=== PATIENT | male | born 1955 | race Caucasian/White ===

== ENCOUNTER 2017-02-15 15:42 | Inpatient (IN) | payer MEDICARE, MEDICAID ==
[2017-02-15] MEDS ORDERED: Sodium Chloride 0.9% 10 ML Syringe FLUSH PRN (17:17)
[2017-02-15] MEDS ORDERED: Sodium Chloride 0.9% 1,000 ML IV SCH (17:30)
[2017-02-15] MEDS: NS + KCl 20mEq/L 1,000 ML IV SCH (19:41)
[2017-02-15] MEDS ORDERED: Albuterol 8 GM Inhaler INH PRN (23:38)
[2017-02-15] MEDS ORDERED: ETANERCEPT 50 MG IM SCH (23:45)
[2017-02-15] MEDS: Acetaminophen/HYDROcodone 325-5 MG Tab PO PRN (23:54)
[2017-02-16] MEDS: NS + KCl 20mEq/L 1,000 ML IV SCH ×3 (03:27→19:34)
[2017-02-16] MEDS: Acetaminophen/HYDROcodone 325-5 MG Tab PO PRN ×2 (05:00→22:08)
[2017-02-16] MEDS: Fish Oil/Omega-3 Fatty Acids 1 Gm Cap PO SCH (07:41)
[2017-02-16] MEDS: Metoprolol Tartrate 50 MG Tab PO SCH ×2 (07:42→19:30)
[2017-02-16] MEDS: Furosemide 40 MG Tab PO SCH ×2 (07:45→11:45)
[2017-02-16] MEDS ORDERED: glipiZIDE 2.5 MG Tab.ER PO SCH (08:00)
[2017-02-16] MEDS ORDERED: POTASSIUM CITRATE 5 MEQ PO SCH (08:00)
[2017-02-16] MEDS ORDERED: metFORMIN 500 MG Tab PO SCH (08:00)
[2017-02-16] MEDS ORDERED: Lisinopril 20 MG Tab PO SCH (08:00)
[2017-02-16] MEDS ORDERED: metFORMIN 500 MG Tab.ER PO SCH (08:00)
[2017-02-16] MEDS ORDERED: Hydrochlorothiazide 25 MG Tab PO SCH (08:00)
--- NOTE | 2017-02-16 13:09 | PCM.PN ---
- General Info Date of Service: 02/16/17 Subjective Update: Pt claims he feels fine today. He has had 2-3 small loose stools since admission. No fever or chills.No cramping. No blood or mucus in the stool. He has been eating . Has been on IV NS with potassium. Has good urinary output. Functional Status: Reports: Pain Controlled, Ambulating, Urinating. Denies: Tolerating Diet - Review of Systems General: Reports: Weakness. Denies: Fever, Fatigue, Malaise HEENT: Denies: Headaches, Sinus Congestion, Sore Throat Pulmonary: Denies: Shortness of Breath, Pleuritic Chest Pain, Cough, Sputum, Hemoptysis Cardiovascular: Denies: Chest Pain, Lightheadedness Gastrointestinal: Reports: Diarrhea. Denies: Abdominal Pain, Nausea, Vomiting Genitourinary: Denies: Frequency, Flank Pain Musculoskeletal: Denies: Joint Pain, Joint Swelling Skin: Denies: Jaundice, Bruising, Pruritis - Patient Data Vitals - Most Recent: Last Vital Signs Temp 98.4 F 02/16/17 08:00 Pulse 78 02/16/17 08:00 Resp 18 02/16/17 08:00 BP 120/61 02/16/17 08:00 Pulse Ox 97 02/16/17 08:00 Weight - Most Recent: 156.489 kg I&O - Last 24 Hours: Intake & Output 02/15/17 02/16/17 02/16/17 22:59 06:59 14:59 Intake Total 2395 Balance 2395 Lab Results Last 24 Hours: Laboratory Results - last 24 hr 02/15/17 02/15/17 02/16/17 Range/Units 16:01 16:01 07:20 WBC 7.9 D (4.0-11.0) K/uL RBC 4.25 L (4.50-6.50) M/uL Hgb 13.6 (13.0-18.0) g/dL Hct 38.5 L (40.0-54.0) % MCV 91 (76-96) fL MCH 32.0 (27.0-32.0) pg MCHC 35.3 H (31.0-35.0) g/dL RDW 15.5 (11.0-16.0) % Plt Count 208 (150-400) K/uL MPV 8.3 (6.0-10.0) fL Neut % (Auto) 73.4 H (45.0-70.0) % Lymph % (Auto) 8.5 L (20.0-40.0) % [place] % (Auto) 17.3 H (3.0-10.0) % Eos % (Auto) 0.5 L (1.0-5.0) % Baso % (Auto) 0.3 (0.0-0.5) % Neut # (Auto) 5.78 (2.00-7.50) K/uL Lymph # (Auto) 0.67 L (1.50-4.00) K/uL [place] # (Auto) 1.36 H (0.20-0.80) K/uL Eos # (Auto) 0.04 (0.04-0.40) K/uL Baso # (Auto) 0.02 (0.02-0.10) K/uL Sodium 131 L 125 L (136-145) mmol/L Potassium 3.4 L D 3.0 L (3.5-5.1) mmol/L Chloride 95 L 99 (98-107) mmol/L Carbon Dioxide 17.0 L D 18.2 L (21.0-32.0) mmol/L Anion Gap 22.4 H 10.8 (5.0-15.0) mmol/L BUN 63 H* D 66 H* (8-26) mg/dL Creatinine 3.69 H* D 3.08 H* (0.70-1.30) mg/dL Est Cr Clr Drug Dosing TNP 25.82 Estimated GFR (MDRD) 17 L 21 L (>60) MLS/MIN BUN/Creatinine Ratio 17.1 21.4 (6-25) Glucose 95 97 (74-100) mg/dL POC Glucose (74-110) mg/dL Calcium 8.7 8.3 L (8.5-10.1) mg/dL 02/16/17 Range/Units 11:08 WBC (4.0-11.0) K/uL RBC (4.50-6.50) M/uL Hgb (13.0-18.0) g/dL Hct (40.0-54.0) % MCV (76-96) fL MCH (27.0-32.0) pg MCHC (31.0-35.0) g/dL RDW (11.0-16.0) % Plt Count (150-400) K/uL MPV (6.0-10.0) fL Neut % (Auto) (45.0-70.0) % Lymph % (Auto) (20.0-40.0) % [place] % (Auto) (3.0-10.0) % Eos % (Auto) (1.0-5.0) % Baso % (Auto) (0.0-0.5) % Neut # (Auto) (2.00-7.50) K/uL Lymph # (Auto) (1.50-4.00) K/uL [place] # (Auto) (0.20-0.80) K/uL Eos # (Auto) (0.04-0.40) K/uL Baso # (Auto) (0.02-0.10) K/uL Sodium (136-145) mmol/L Potassium (3.5-5.1) mmol/L Chloride (98-107) mmol/L Carbon Dioxide (21.0-32.0) mmol/L Anion Gap (5.0-15.0) mmol/L BUN (8-26) mg/dL Creatinine (0.70-1.30) mg/dL Est Cr Clr Drug Dosing Estimated GFR (MDRD) (>60) MLS/MIN BUN/Creatinine Ratio (6-25) Glucose (74-100) mg/dL POC Glucose 90 (74-110) mg/dL Calcium (8.5-10.1) mg/dL Med Orders - Current: Current Medications Hydrocodone Bitart/Acetaminophen ([place] 325-5 Mg) 1 tab PO BID PRN PRN Reason: Pain Last Admin: 02/16/17 05:00 Dose: 1 tab Albuterol (Ventolin Hfa) 0 gm INH Q4H PRN PRN Reason: Shortness of Breath Fish Oil (Fish Oil) 1 gm PO DAILY [facility] Last Admin: 02/16/17 07:41 Dose: 1 gm Furosemide (Lasix) 40 mg PO DAILY [facility] Last Admin: 02/16/17 11:45 Dose: Not Given Glipizide (Glucotrol Xl) 2.5 mg PO DAILY [facility] Last Admin: 02/16/17 07:41 Dose: 2.5 mg Hydrochlorothiazide (Hydrochlorothiazide) 25 mg PO DAILY [facility] Last Admin: 02/16/17 07:41 Dose: 25 mg Potassium Chloride/Sodium Chloride (Normal Saline With 20 Meq Kcl) 1,000 mls @ 125 mls/hr IV ASDIRECTED [facility] Last Admin: 02/16/17 11:46 Dose: 125 mls/hr Lisinopril (Prinivil) 20 mg PO DAILY [facility] Last Admin: 02/16/17 07:41 Dose: 20 mg Metoprolol Tartrate (Lopressor) 50 mg PO BID [facility] Last Admin: 02/16/17 07:42 Dose: 50 mg Non-Formulary Medication (Etanercept [Enbrel]) 50 mg IM WEEKLY [facility] Non-Formulary Medication (Potassium Citrate [Potassium Citrate Er]) 5 meq PO TID [facility] Sodium Chloride (Saline Flush) 10 ml FLUSH ASDIRECTED PRN PRN Reason: Keep Vein Open Discontinued Medications Sodium Chloride (Normal Saline) 1,000 mls @ 1,000 mls/hr IV BOLUS [facility] Stop: 02/15/17 18:29 Last Admin: 02/15/17 18:20 Dose: 1,000 mls/hr Metformin HCl (Glucophage Xr) 1,000 mg PO DAILY [facility] Metformin HCl (Glucophage) 500 mg PO BID [facility] - Exam General: Alert, Oriented HEENT: Pupils Equal, Pupils Reactive, EOMI, Mucous Membr. Moist/[place] Neck: Supple Lungs: Clear to Auscultation, Normal Respiratory Effort Cardiovascular: Regular Rate, Regular Rhythm GI/Abdominal Exam: Soft, Non-Tender, No Organomegaly, No Distention, No Abnormal Bruit, No Mass, Pelvis Stable, Abnormal Bowel Sounds (sligthly hyperactive) - Problem List & Annotations (1) Gastroenteritis SNOMED Code(s): 14674846 Code(s): K52.9 - NONINFECTIVE GASTROENTERITIS AND COLITIS, UNSPECIFIED Status: Acute Current Visit: Yes (2) Renal failure, acute SNOMED Code(s): 73519845 Code(s): N17.9 - ACUTE KIDNEY FAILURE, UNSPECIFIED Status: Acute Current Visit: Yes - Problem List Review Problem List Initiated/Reviewed/Updated: Yes - My Orders Last 24 Hours: My Active Orders 02/15/17 17:17 Patient Status [ADT] Routine Bedrest Bathroom Privileges [RC] ASDIRECTED Height and Weight [RC] UPON Oxygen Therapy [RC] PRN VTE/DVT Education [RC] Per Unit Routine Vital Signs [RC] 00,04,08,12,16,20 Sodium Chloride 0.9% [Saline Flush] 10 ml FLUSH ASDIRECTED PRN Peripheral IV Insertion Adult [OM.PC] Routine Resuscitation Status Routine 02/15/17 17:19 Intake and Output [RC] 06,18 02/15/17 17:30 NS + KCl 20mEq/L [Normal Saline with 20 mEq KCl] 1,000 ml IV ASDIRECTED 02/15/17 20:17 CULTURE MRSA SURVEY [RM] Routine 02/15/17 23:38 Acetaminophen/HYDROcodone [[place] 325-5 MG] 1 tab PO BID PRN Albuterol [Ventolin HFA] 0 gm INH Q4H PRN 02/15/17 23:45 Etanercept [Enbrel] 50 mg IM WEEKLY 02/15/17 Dinner Mechanical Soft Diet [DIET] 02/16/17 GI BACTERIAL PCR PANEL Routine 02/16/17 08:00 Fish Oil/[place]-3 Fatty Acids [Fish Oil] 1 gm PO DAILY Furosemide [Lasix] 40 mg PO DAILY Hydrochlorothiazide 25 mg PO DAILY Lisinopril [Prinivil] 20 mg PO DAILY Metoprolol Tartrate [Lopressor] 50 mg PO BID Potassium Citrate [Potassium Citrate ER] 5 meq PO TID glipiZIDE [Glucotrol XL] 2.5 mg PO DAILY 02/16/17 10:13 Blood Glucose Check, Bedside [RC] QIDACANDBED - Assessment Assessment:: Gastroenteritis with dehydration with prerenal failure - Plan Plan:: Pt claims that he has had 3 smaller volume watery stools since admission. No cramping. No blood or mucus in the stool. His labs today, show sodium further dropped to 125, but his creat has improved to 3.01 from 3.8. Also his anion gap has cleared. I am stopping, his LAsix, metformin, HCTZ and glyburide until his renal functions improve. Will have him on frequent blood sugar monitoring for his diabetes. Will repeat his BMP in am.
[2017-02-17] MEDS: NS + KCl 20mEq/L 1,000 ML IV SCH (03:06)
[2017-02-17] MEDS: Fish Oil/Omega-3 Fatty Acids 1 Gm Cap PO SCH (08:49)
[2017-02-17 08:50] VITALS: BP 123/57
[2017-02-17] MEDS: Metoprolol Tartrate 50 MG Tab PO SCH (08:50)
--- NOTE | 2017-02-17 13:22 | PCM.DCSUM1 ---
Discharge Summary - Hospital Course Free Text/Narrative:: Pt was admitted with Acute viral gastroenteritis with Acute dehydration with Renal failure with Creat of 3.8. Pt was admitted for IV hydration and monitoring his sodium as he was hyponatremic at admission. Pt was started on IV normal saline with 20 meq of potassium at 125/hr. His vitals were stable. His CBC was normal. Stool culture ordered. On Day 1, pt had 3 watery loose stools, his sodium was further down to 125 and his creat has mildly improved to 3.06. Pt was feeling better. No abdominal pain or cramping. No fever. HE was encourage oral hydration and IV fluids were continued. Also I have stopped his lisinopril, LAsix, HCTZ, metformin and glyburide at this point as they are all nephrotoxic. Plan ws to continue IV hydration as he does appear to be in prerenal renal failure. Day2: pt claims his stools have got softer and has formed stool and only one time. He has not complaints. feeling better and strong. Tolerating diet well. His sodium today is 137 and his creat is down to 1.6. Pt tolerating diet and oral fluids well. His stools are forming now. Clinical exam is normal. At this point, pt prefer to be discharge. I do feel patient is okay to be discharge as his labs are reassuring and he has clinical improved well. I have advised patient to continue to stay of his meds that have been stopped for now. Return to clinic next tuesday or tuesday and have repeat lab BMP done before restarting the meds.Pt understands and agree with the plan. Brief History: Loose stools with dehydration. Adilia see H&P - Discharge Data Discharge Date: 02/17/17 Discharge Disposition: Home, Self-Care 01 Condition: Good - Discharge Diagnosis/Problem(s) (1) Gastroenteritis SNOMED Code(s): 58972084 ICD Code: K52.9 - NONINFECTIVE GASTROENTERITIS AND COLITIS, UNSPECIFIED Status: Acute Current Visit: Yes (2) Renal failure, acute SNOMED Code(s): 82235979 ICD Code: N17.9 - ACUTE KIDNEY FAILURE, UNSPECIFIED Status: Acute Current Visit: Yes - Patient Instructions Diet: Mechanical Soft Fluid Restriction: 2000 mL Activity: As Tolerated Driving: May Drive Today Showering/Bathing: May Shower - Discharge Plan Home Medications: Home Meds Etanercept [Enbrel] 50 mg IM WEEKLY 06/17/13 [History] Hydrocodone/Acetaminophen [Hydrocodone-Acetaminophen 5-325] 1 tab PO BID PRN [History] Metoprolol Tartrate 50 mg PO BID 05/12/15 [History] Albuterol Sulfate [Proair Hfa] 8.5 gm IH Q4HR PRN 02/15/17 [History] Fish Oil/[place]-3 Fatty Acids [Fish Oil 1,000 MG] 1 each PO DAILY 02/15/17 [ History] Potassium Citrate [Potassium Citrate ER] 5 meq PO TID 02/15/17 [History] metFORMIN HCl [Glucophage] 500 mg PO BID 02/15/17 [History] Patient Handouts: Glipizide tablets, Viral Gastroenteritis, Adult, [id number] - Discharge Summary/Plan Comment DC Time >30 min.: Yes Discharge Summary/Plan Comment: Encourage oral fluids. Followup in clinic next tuesday or tuesday. - General Info Functional Status: Reports: Tolerating Diet, Ambulating, Urinating - Review of Systems General: Denies: Fever, Weakness, Fatigue HEENT: Denies: Dysphasia, Sinus Congestion, Sore Throat Pulmonary: Denies: Shortness of Breath, Pleuritic Chest Pain, Sputum, Hemoptysis Cardiovascular: Denies: Chest Pain, Lightheadedness Gastrointestinal: Reports: Diarrhea. Denies: Abdominal Pain, Nausea, Vomiting Genitourinary: Denies: Dysuria, Frequency Musculoskeletal: Denies: Joint Pain, Joint Swelling Skin: Denies: Bruising, Pruritis, Rash Neurological: Denies: Confusion, Seizure, Syncope, Tingling Psychiatric: Denies: Confusion, Depression - Patient Data Vitals - Most Recent: Last Vital Signs Temp 96.7 F 02/17/17 08:00 Pulse 49 L 02/17/17 08:50 Resp 18 02/17/17 08:00 BP 123/57 L 02/17/17 08:50 Pulse Ox 98 02/17/17 08:00 Weight - Most Recent: 156.489 kg I&O - Last 24 hours: Intake & Output 02/16/17 02/17/17 02/17/17 22:59 06:59 14:59 Intake Total 2450 2800 Balance 2450 2800 Lab Results - Last 24 hrs: Laboratory Results - last 24 hr 02/17/17 02/17/17 02/17/17 Range/Units 07:30 07:45 10:40 Sodium 138 (136-145) mmol/L Potassium 3.7 D (3.5-5.1) mmol/L Chloride 106 (98-107) mmol/L Carbon Dioxide 19.0 L (21.0-32.0) mmol/L Anion Gap 16.7 H (5.0-15.0) mmol/L BUN 44 H D (8-26) mg/dL Creatinine 1.68 H D (0.70-1.30) mg/dL Est Cr Clr Drug Dosing 47.34 mL/min Estimated GFR (MDRD) 42 L (>60) MLS/MIN BUN/Creatinine Ratio 26.2 H (6-25) Glucose 100 (74-100) mg/dL POC Glucose 132 H 110 (74-110) mg/dL Calcium 8.2 L (8.5-10.1) mg/dL JANNETTE Results - Last 24 hrs: Microbiology 02/16/17 07:20 MRSA Surveillance Culture - Final Nares, Unspecified NO MRSA ISOLATED Med Orders - Current: Current Medications Hydrocodone Bitart/Acetaminophen ([place] 325-5 Mg) 1 tab PO BID PRN PRN Reason: Pain Last Admin: 02/16/17 22:08 Dose: 1 tab Albuterol (Ventolin Hfa) 0 gm INH Q4H PRN PRN Reason: Shortness of Breath Fish Oil (Fish Oil) 1 gm PO DAILY [facility] Last Admin: 02/17/17 08:49 Dose: 1 gm Furosemide (Lasix) 40 mg PO DAILY [facility] Last Admin: 02/16/17 11:45 Dose: Not Given Glipizide (Glucotrol Xl) 2.5 mg PO DAILY [facility] Last Admin: 02/16/17 07:41 Dose: 2.5 mg Hydrochlorothiazide (Hydrochlorothiazide) 25 mg PO DAILY [facility] Last Admin: 02/16/17 07:41 Dose: 25 mg Potassium Chloride/Sodium Chloride (Normal Saline With 20 Meq Kcl) 1,000 mls @ 125 mls/hr IV ASDIRECTED [facility] Last Admin: 02/17/17 03:06 Dose: 125 mls/hr Lisinopril (Prinivil) 20 mg PO DAILY [facility] Last Admin: 02/16/17 07:41 Dose: 20 mg Metoprolol Tartrate (Lopressor) 50 mg PO BID [facility] Last Admin: 02/17/17 08:50 Dose: 50 mg Non-Formulary Medication (Etanercept [Enbrel]) 50 mg IM WEEKLY [facility] Non-Formulary Medication (Potassium Citrate [Potassium Citrate Er]) 5 meq PO TID [facility] Sodium Chloride (Saline Flush) 10 ml FLUSH ASDIRECTED PRN PRN Reason: Keep Vein Open Discontinued Medications Sodium Chloride (Normal Saline) 1,000 mls @ 1,000 mls/hr IV BOLUS [facility] Stop: 02/15/17 18:29 Last Admin: 02/15/17 18:20 Dose: 1,000 mls/hr Metformin HCl (Glucophage Xr) 1,000 mg PO DAILY [facility] Last Admin: 02/16/17 15:20 Dose: Not Given Metformin HCl (Glucophage) 500 mg PO BID [facility] Last Admin: 02/16/17 15:20 Dose: Not Given - Exam General: Reports: Alert, Oriented HEENT: Reports: Pupils Equal, Pupils Reactive, EOMI, Mucous Membr. Moist/[place] Neck: Reports: Supple Lungs: Reports: Clear to Auscultation, Normal Respiratory Effort Cardiovascular: Reports: Regular Rate, Regular Rhythm GI/Abdominal Exam: Normal Bowel Sounds, Soft, Non-Tender, No Organomegaly, No Distention, No Abnormal Bruit, No Mass, Pelvis Stable Back Exam: Reports: Normal Inspection, Full Range of Motion Extremities: Normal Inspection, Normal Range of Motion, Non-Tender, No Pedal Edema, Normal Capillary Refill *Q Meaningful Use (DIS) - VTE *Q VTE Criteria *Q: - Stroke *Q Stroke Criteria *Q: - AMI *Q AMI Criteria *Q:
[2017-02-18 01:14] LABS: CAMPYLOBACTER (by PCR) Negative (NEG); SALMONELLA SPECIES (by PCR) Negative (NEG); SHIG OR ENTEROPATH ECOLI (PCR) Negative (NEG); SHIGA TOXIN PRODUC ECOLI (PCR) Negative (NEG)
== END 2017-02-17 14:10 | disposition home or self-care (01) | DRG 392 ==
LOC: LB.CLINIC 15:42 → UNDOADMIN 16:53 → LB.MS 16:53
PROVIDERS: ADMIT Family Medicine; ATTEND Family Medicine
DX: A08.4 Viral intestinal infection, unspecified (principal); N17.9 Acute kidney failure, unspecified; E87.1 Hypo-osmolality and hyponatremia; E11.9 Type 2 diabetes mellitus without complications; E86.0 Dehydration; Z79.84 Long term (current) use of oral hypoglycemic drugs; Z88.5 Allergy status to narcotic agent; Z88.8 Allergy status to other drugs, medicaments and biological substances; R19.7 Diarrhea, unspecified
CPT/HCPCS: 36415; 80048; 82962; 85025; 87505; A9270-GY; J3480; J7040

== ENCOUNTER 2017-02-28 17:27 | Emergency (ER) | payer MEDICARE, MEDICAID ==
[2017-02-28] MEDS ORDERED: Amoxicillin/Clavulanate K 875-125 MG Tab ONE (17:45)
[2017-02-28 17:51] VITALS: BP 137/65
--- NOTE | 2017-03-04 19:14 | EDM.PDOC ---
ED HPI GENERAL MEDICAL PROBLEM - General Chief Complaint: General Stated Complaint: general Time Seen by Provider: 03/04/17 18:00 Source of Information: Reports: Patient History Limitations: Reports: No Limitations - History of Present Illness INITIAL COMMENTS - FREE TEXT/NARRATIVE: This is a 61yo M here for a left big toe injury. Patient state he stubbed the toe and it is irritated. He is afraid of injection. Onset: Sudden Duration: Day(s):, Getting Worse Location: Reports: Lower Extremity, Left Severity: Mild Improves with: Reports: None Worsens with: Reports: None Associated Symptoms: Reports: No Other Symptoms Left 2-Long toe Pain Score (Numeric/FACES): 3 - Related Data Allergies Allergy/AdvReac Type Severity Reaction Status Date / Time acetaminophen Allergy Headache Verified 05/09/15 16:57 [From Tylenol-Codeine #3] atorvastatin Allergy Muscle Verified 02/15/17 17:57 Aches rosuvastatin Allergy Dizziness Verified 02/15/17 17:57 Home Meds: Home Meds Etanercept [Enbrel] 50 mg IM WEEKLY 06/17/13 [History] Hydrocodone/Acetaminophen [Hydrocodone-Acetaminophen 5-325] 1 tab PO BID PRN [History] Metoprolol Tartrate 50 mg PO BID 05/12/15 [History] Albuterol Sulfate [Proair Hfa] 8.5 gm IH Q4HR PRN 02/15/17 [History] Fish Oil/[place]-3 Fatty Acids [Fish Oil 1,000 MG] 1 each PO DAILY 02/15/17 [ History] Potassium Citrate [Potassium Citrate ER] 5 meq PO TID 02/15/17 [History] metFORMIN HCl [Glucophage] 500 mg PO BID 02/15/17 [History] Past Medical History HEENT History: Reports: Cataract Cardiovascular History: Reports: High Cholesterol, Hypertension Genitourinary History: Reports: Renal Calculus Musculoskeletal History: Reports: Osteoarthritis, Other (See Below) Other Musculoskeletal History: ankylosing spondylitis Endocrine/Metabolic History: Reports: Diabetes, Type II, Obesity/BMI 30+ - Past Surgical History HEENT Surgical History: Reports: Cataract Surgery Social & Family History - Family History Family Medical History: Noncontributory - Tobacco Use Smoking Status *Q: Never Smoker Second Hand Smoke Exposure: No - Alcohol Use Days Per Week of Alcohol Use: 1 Number of Drinks Per Day: 3 Total Drinks Per Week: 3 - Recreational Drug Use Recreational Drug Use: No - Living Situation & Occupation Living situation: Reports: Single Occupation: Employed Review of Systems - Review of Systems Review Of Systems: ROS reveals no pertinent complaints other than HPI. ED EXAM, GENERAL - Physical Exam Exam: See Below Exam Limited By: No Limitations General Appearance: Alert, WD/WN, No Apparent Distress Respiratory/Chest: No Respiratory Distress Cardiovascular: Normal Peripheral Pulses Peripheral Pulses: 2+: Dorsalis Pedis (L), Dorsalis Pedis (R) Extremities: Redness (of left big toe) Course - Vital Signs Last Recorded V/S: Last Vital Signs Temp 37.8 C 02/28/17 17:49 Pulse 101 H 02/28/17 17:49 Resp 16 02/28/17 17:49 BP 137/65 02/28/17 17:49 Pulse Ox 97 02/28/17 17:49 - Orders/Labs/Meds Meds: Medications Discontinued Medications Generic Name Dose Route Start Last Admin Trade Name Steve PRN Reason Stop Dose Admin Amoxicillin/Clavulanate Potassium 20 tab 02/28/17 17:45 Augmentin 875 Mg/125 Mg .ROUTE 02/28/17 17:46 .STK-MED ONE Departure - Departure Time of Disposition: 18:30 Disposition: Home, Self-Care 01 Condition: Good Clinical Impression: Toe infection - Discharge Information Instructions: Nail Bed Injury, [id number] Forms: ED Department Discharge Care Plan Goals: Follow up with [facility] on Tuesday. Take antibiotic as prescribed. Return if symptoms worsen or with any questions or concerns.
== END 2017-03-04 18:15 | disposition home or self-care (01) ==
LOC: LB.ED 17:27
DX: L08.9 Local infection of the skin and subcutaneous tissue, unspecified (principal); I10 Essential (primary) hypertension; E78.00 Pure hypercholesterolemia, unspecified; E11.9 Type 2 diabetes mellitus without complications; Z79.84 Long term (current) use of oral hypoglycemic drugs; Z79.899 Other long term (current) drug therapy; Z88.6 Allergy status to analgesic agent; Z88.8 Allergy status to other drugs, medicaments and biological substances
CPT/HCPCS: 99283; A9270

== ENCOUNTER 2017-06-14 21:00 | Emergency (ER) | payer MEDICARE, MEDICAID ==
[2017-06-14] MEDS ORDERED: Amoxicillin/Clavulanate K 875-125 MG Tab ONE (22:00)
[2017-06-14] MEDS: cefTRIAXone 1 GM Vial ONE (22:04)
[2017-06-14] MEDS: cefTRIAXone 1 GM Vial IM ONE (22:10)
[2017-06-15 00:29] VITALS: BP 138/69
--- NOTE | 2017-06-15 10:07 | ER ---
DATE OF SERVICE: 06/14/2017 HISTORY OF PRESENT ILLNESS: A 61-year-old male here with complaints of swelling and some redness involving both lower legs. He states it has been ongoing for a few days. He does have chronic swelling, but the redness and some discomfort or pressure seems to be new for him. He has not been running a fever to his knowledge and he denies any injury to his lower legs. PAST MEDICAL HISTORY: Includes diabetes, hypertension, and obesity. OBJECTIVE: GENERAL APPEARANCE: The patient is awake and alert. No obvious distress. VITAL SIGNS: Reviewed. He is afebrile. Blood pressure is 138/69. EXTREMITIES : Examining both lower legs reveals moderate swelling with mild redness involving the right lower leg and to a lesser degree minimal redness involving the left lower leg. SKIN: The skin is tight, but there is some pitting noted. The rash areas are warm and slightly tender to the touch. I do not see any obvious break in the skin. DIAGNOSIS: Cellulitis of both lower extremities. TREATMENT PLAN: Rocephin 1 g will be given IM. The patient also will be started on Augmentin. He is to take his first dose of Augmentin tonight as well. He is to go home, rest, keep his feet elevated, and apply heat frequently and monitor symptoms closely over the next couple of days. Recheck should be within the next 2 days if his symptoms are not improving or of course of his condition should get worse. Recheck is otherwise p.r.n. REFUGIO/DANIEL /[id number] LAURA
== END 2017-06-14 22:23 | disposition home or self-care (01) ==
LOC: LB.ED 21:00
DX: L03.116 Cellulitis of left lower limb (principal); L03.115 Cellulitis of right lower limb; I10 Essential (primary) hypertension; E11.9 Type 2 diabetes mellitus without complications
CPT/HCPCS: 96372; 99283-25; A9270-GY; J0696

== ENCOUNTER 2018-03-18 09:56 | Emergency (ER) | payer MEDICARE, MEDICAID ==
[2018-03-18 10:27] VITALS: BP 148/72
--- NOTE | 2018-03-18 10:31 | EDM.PDOC ---
ED HPI GENERAL MEDICAL PROBLEM - General Time Seen by Provider: 03/18/18 10:00 Source of Information: Reports: Patient History Limitations: Reports: No Limitations - History of Present Illness INITIAL COMMENTS - FREE TEXT/NARRATIVE: According to patient, he was home used the toilet today morning for bowel movement and then showered. He noticed there was bleeding from his hemorrhoids in the shower. He claims it was bright red blood. hence he came into emergency room. Also he claims that he got short of breath after shower, presently not short of breath. n chest pain. no wheezing or cough. Pt's SPO2 is above 94% on room air. Pt does have neutropenia and is on Neupogen shot. He also needs CBC to have his whit count checked. No abdominal pain, nausea , vomiting, no abdominal bloating . No fever or chills Onset: Today Onset Date: 03/18/18 Severity: Mild Improves with: Reports: None Worsens with: Reports: None Associated Symptoms: Reports: Shortness of Breath. Denies: Confusion, Chest Pain, Cough, Diaphoresis, Fever/Chills, Nausea/Vomiting, Rash, Seizure, Syncope , Weakness - Related Data Allergies Allergy/AdvReac Type Severity Reaction Status Date / Time codeine Allergy Headache Verified 03/14/18 05:52 rosuvastatin Allergy Dizziness Verified 03/14/18 05:06 atorvastatin AdvReac Muscle Verified 03/14/18 05:06 Aches Home Meds: Home Meds Hydrocodone/Acetaminophen [Hydrocodone-Acetaminophen 5-325] 1 tab PO BID PRN [History] Albuterol Sulfate [Proair Hfa] 1 - 2 puff IH Q4HR PRN 02/15/17 [History] Fish Oil/[place]-3 Fatty Acids [Fish Oil 1,000 MG] 1 each PO DAILY 02/15/17 [ History] Potassium Citrate [Potassium Citrate ER] 15 meq PO TID 02/15/17 [History] metFORMIN HCl [Glucophage] 500 mg PO TID 02/15/17 [History] Furosemide 40 mg PO DAILY 02/24/18 [History] Lisinopril/Hydrochlorothiazide [Lisinopril-Hctz 20-25 mg Tab] 20 - 25 mg PO DAILY 02/24/18 [History] Simvastatin 10 mg PO DAILY 02/24/18 [History] Allopurinol [Zyloprim] 300 mg PO BEDTIME 03/13/18 [History] Metoprolol Tartrate 50 mg PO BID 03/13/18 [History] Sulfamethoxazole/Trimethoprim [Bactrim Ds Tablet] 2 each PO BID #13 tablet 03/17 [Rx] Sulfamethoxazole/Trimethoprim [Septra DS] 2 tab PO BID #0 tablet 03/17/18 [Rx] Past Medical History - Past Health History Medical/Surgical History: Denies Medical/Surgical History HEENT History: Reports: Cataract Cardiovascular History: Reports: High Cholesterol, Hypertension Respiratory History: Reports: Sleep Apnea Gastrointestinal History: Reports: GERD Genitourinary History: Reports: Renal Calculus Musculoskeletal History: Reports: Osteoarthritis, Other (See Below) Other Musculoskeletal History: ankylosing spondylitis Endocrine/Metabolic History: Reports: Diabetes, Type II, Obesity/BMI 30+ Dermatologic History: Reports: Cellulitis - Past Surgical History HEENT Surgical History: Reports: Cataract Surgery Social & Family History - Family History Family Medical History: Noncontributory - Caffeine Use Caffeine Use: Reports: Soda - Living Situation & Occupation Living situation: Reports: Single Occupation: Employed ED ROS GENERAL - Review of Systems Review Of Systems: See Below Constitutional: Denies: Fever, Chills HEENT: Denies: Nosebleed, Rhinitis, Throat Pain Respiratory: Reports: Shortness of Breath. Denies: Wheezing, Pleuritic Chest Pain, Cough, Sputum Cardiovascular: Denies: Chest Pain, Lightheadedness GI/Abdominal: Reports: Hematochezia. Denies: Abdominal Pain, Black Stool, Bloody Stool, Hematemesis, Melena, Nausea, Vomiting : Denies: Flank Pain, Frequency Musculoskeletal: Denies: Joint Pain, Joint Swelling Skin: Denies: Pruritis, Rash Neurological: Denies: Confusion, Dizziness, Headache ED EXAM, GENERAL - Physical Exam Exam: See Below Exam Limited By: No Limitations General Appearance: Alert, WD/WN, No Apparent Distress, Obese Eye Exam: Bilateral Eye: EOMI, PERRL Ears: Normal External Exam, Normal Canal, Hearing Grossly Normal, Normal TMs Ear Exam: Bilateral Ear: Auricle Normal, Canal Normal, TM normal Nose: Normal Inspection, Normal Mucosa, No Blood Throat/Mouth: Normal Inspection, Normal Lips, Normal Teeth, Normal Gums, Normal Oropharynx, Normal Voice, No Airway Compromise Head: Atraumatic, Normocephalic Neck: Normal Inspection, Supple, Non-Tender, Full Range of Motion Respiratory/Chest: No Respiratory Distress, Lungs Clear, Normal Breath Sounds, No Accessory Muscle Use, Chest Non-Tender Cardiovascular: Normal Peripheral Pulses, Regular Rate, Rhythm, No Edema, No Gallop, No JVD, No Murmur, No Rub Peripheral Pulses: 2+: Radial (L), Radial (R), Dorsalis Pedis (L), Dorsalis Pedis (R) GI/Abdominal: Normal Bowel Sounds, Soft, Non-Tender, No Organomegaly, No Distention, No Abnormal Bruit, No Mass Rectal (Males) Exam: Normal Exam, Normal Rectal Tone, Prostate Normal, Hemorrhoids, Other (Anocscopic exam :there is normal borwnish yellow stool noted in the rectal vault.He does have a nontender externalhemorrhoid, but I do not see any active bleeding.) Extremities: Normal Inspection, Normal Range of Motion Skin Exam: Warm, Intact Course - Vital Signs Text/Narrative:: Pt claims that he had some blood that he noticed in the rectum while he was showering. He does have an external hemorrhoid which is non tender, if do not see any active bleeding. Also Anoscopic exam was done and his rectum hs normal stool. The bleeding might be related to tear in the skin. His Hemoglobin yesterday was 9.7 gms and it is 9.7 gms today.Reassured that he has not had lot of bleeding and presently it has stopped.advised sitz lucas to help with his hemorrhoids. Also his white count has improved from 3K yesterday to 8.3K.He does not need Neupogen today. Followup in clinic next mid-week and have CBC repeated. Last Recorded V/S: Last Vital Signs Temp 99.7 F 03/18/18 10:25 Pulse 113 H 03/18/18 10:25 Resp 16 03/18/18 10:25 BP 148/72 H 03/18/18 10:25 Pulse Ox 92 L 03/18/18 10:25 - Orders/Labs/Meds Orders: Active Orders 24 hr Category Date Time Status Chest 1V Frontal [CR] Stat Exams 03/18/18 10:24 Taken CBC WITH AUTO DIFF [HEME] Stat Lab 03/18/18 10:34 Results Labs: Laboratory Tests 03/18/18 Range/Units 10:34 WBC 8.3 D (4.0-11.0) K/uL RBC 2.82 L (4.50-6.50) M/uL Hgb 9.7 L (13.0-18.0) g/dL Hct 28.5 L (40.0-54.0) % MCV 101 H (76-96) fL MCH 34.4 H (27.0-32.0) pg MCHC 34.0 (31.0-35.0) g/dL RDW 16.8 H (11.0-16.0) % Plt Count 52 L D (150-400) K/uL MPV 8.6 (6.0-10.0) fL Add Manual Diff Yes Departure - Departure Time of Disposition: 11:00 Disposition: Home, Self-Care 01 Condition: Fair Clinical Impression: Bleeding external hemorrhoids, Bleeding hemorrhoid - Discharge Information *PRESCRIPTION DRUG MONITORING PROGRAM REVIEWED*: Not Applicable *COPY OF PRESCRIPTION DRUG MONITORING REPORT IN PATIENT MICHELLE: Not Applicable Referrals: PCP,None [Primary Care Provider] - Additional Instructions: Chest X-ray appears noraml. SPO2 is stble. He is ot short of breath here. Might be anxiety related. His Hemoglobin yesterday was 9.7 gms and it is 9.7 gms today.Reassured that he has not had lot of bleeding and presently it has stopped.advised obdulia lucas to help with his hemorrhoids. Also his white count has improved from 3K yesterday to 8.3K.He does not need Neupogen today. Followup in clinic next mid-week and have CBC repeated. - Problem List & Annotations (1) Bleeding external hemorrhoids SNOMED Code(s): 19086401 Code(s): K64.4 - RESIDUAL HEMORRHOIDAL SKIN TAGS Status: Acute Current Visit: Yes - Problem List Review Problem List Initiated/Reviewed/Updated: Yes - My Orders Last 24 Hours: My Active Orders 03/18/18 10:24 Chest 1V Frontal [CR] Stat 03/18/18 10:34 CBC WITH AUTO DIFF [HEME] Stat - Assessment/Plan Last 24 Hours: My Active Orders 03/18/18 10:24 Chest 1V Frontal [CR] Stat 03/18/18 10:34 CBC WITH AUTO DIFF [HEME] Stat Assessment:: rectal bleeding resolved. Thrombosed painless external hemorrhoid Plan: Pt claims that he had some blood that he noticed in the rectum while he was showering. He does have an external hemorrhoid which is non tender, if do not see any active bleeding. Also Anoscopic exam was done and his rectum hs normal stool. The bleeding might be related to tear in the skin. Chest x-ray normal. Vitals stable. Spo2 above 94%. His Hemoglobin yesterday was 9.7 gms and it is 9.7 gms today.Reassured that he has not had lot of bleeding and presently it has stopped.advised obdulia lucas to help with his hemorrhoids. Also his white count has improved from 3K yesterday to 8.3K.He does not need Neupogen today. Followup in clinic next mid-week and have CBC repeated.
--- NOTE | 2018-03-19 11:51 | CR ---
AP PORTABLE CHEST, 03/18/18 The patient is in an apical lordotic position. The patient has taken a poor inspiration. Comparison is made to a prior exam dated 11/30/17. The heart is mildly enlarged. It is probably accentuated by the poor inspiration and projection. The pulmonary vasculature does appear mildly prominent. Pulmonary vascular congestion or fluid overload should be considered. There are minimal atelectatic changes in both lung bases. The lungs are otherwise clear. No pneumothorax. No pleural effusions. [id number] [facility]
== END 2018-03-18 11:25 | disposition home or self-care (01) ==
LOC: LB.ED 09:56
DX: K64.4 Residual hemorrhoidal skin tags (principal); E11.9 Type 2 diabetes mellitus without complications; E66.9 Obesity, unspecified; Z88.5 Allergy status to narcotic agent; Z88.8 Allergy status to other drugs, medicaments and biological substances; Z79.899 Other long term (current) drug therapy
CPT/HCPCS: 36415; 71045; 85025; 99284

== ENCOUNTER 2018-10-16 19:01 | Emergency (ER) | payer MEDICARE, MEDICAID ==
[2018-10-16 19:24] VITALS: PULSE 92
[2018-10-16] MEDS ORDERED: Cephalexin 500 MG Cap ONE (19:40)
[2018-10-16 19:48] VITALS: BP 156/112
--- NOTE | 2018-10-17 11:09 | EDM.PDOC ---
ED HPI GENERAL MEDICAL PROBLEM - General Chief Complaint: General Stated Complaint: Fever, SOB Time Seen by Provider: 10/16/18 19:30 Source of Information: Reports: Patient History Limitations: Reports: No Limitations - History of Present Illness INITIAL COMMENTS - FREE TEXT/NARRATIVE: This is a 63yo M here for concerns of cough and chest congestion. He notes some discomfort with a deep breath at times. He states these symptoms have been going on for the past month. He felt he had a fever and notes 100.8 F temp at home. Onset: Gradual Duration: Day(s): Location: Reports: Chest Severity: Mild Improves with: Reports: None Worsens with: Reports: None Generalized Pain Score (Numeric/FACES): 7 - Related Data Allergies Allergy/AdvReac Type Severity Reaction Status Date / Time No Known Allergies Allergy Verified 10/16/18 19:34 Home Meds: Home Meds metFORMIN HCl [Glucophage] 500 mg PO BID 02/15/17 [History] Simvastatin 10 mg PO DAILY 02/24/18 [History] Allopurinol [Zyloprim] 100 mg PO BEDTIME 03/13/18 [History] Metoprolol Tartrate 75 mg PO BID 03/13/18 [History] Apixaban [Eliquis] 5 mg PO BID 10/16/18 [History] Colchicine 0.6 mg PO BID 10/16/18 [History] Sulfamethoxazole/Trimethoprim [Septra DS] 2 tab PO DAILY 10/16/18 [History] predniSONE [Prednisone] 5 mg PO DAILY 10/16/18 [History] Past Medical History - Past Health History Medical/Surgical History: Denies Medical/Surgical History HEENT History: Reports: Cataract, Hard of Hearing Cardiovascular History: Reports: High Cholesterol, Hypertension Respiratory History: Reports: Sleep Apnea Gastrointestinal History: Reports: GERD Genitourinary History: Reports: Renal Calculus Musculoskeletal History: Reports: Osteoarthritis, Other (See Below) Other Musculoskeletal History: ankylosing spondylitis Endocrine/Metabolic History: Reports: Diabetes, Type II, Obesity/BMI 30+ Oncologic (Cancer) History: Reports: Leukemia, Other (See Below) Other Oncologic History: Completed Tx for Leukemia one week ago and states he does not have to see oncology for 3 months now. Dermatologic History: Reports: Cellulitis - Past Surgical History HEENT Surgical History: Reports: Cataract Surgery Social & Family History - Family History Family Medical History: Noncontributory - Tobacco Use Smoking Status *Q: Never Smoker Second Hand Smoke Exposure: No - Caffeine Use Caffeine Use: Reports: Coffee - Recreational Drug Use Recreational Drug Use: No - Living Situation & Occupation Living situation: Reports: Single Occupation: Employed ED ROS GENERAL - Review of Systems Review Of Systems: ROS reveals no pertinent complaints other than HPI. ED EXAM, GENERAL - Physical Exam Exam: See Below Exam Limited By: No Limitations General Appearance: Alert, WD/WN, No Apparent Distress Eye Exam: Bilateral Eye: PERRL Ears: Normal External Exam Nose: Normal Inspection Throat/Mouth: Normal Inspection Head: Atraumatic, Normocephalic Neck: Normal Inspection Respiratory/Chest: No Respiratory Distress, Lungs Clear, Normal Breath Sounds, No Accessory Muscle Use, Chest Non-Tender Cardiovascular: Normal Peripheral Pulses, Regular Rate, Rhythm GI/Abdominal: Normal Bowel Sounds Back Exam: Normal Inspection Extremities: Normal Inspection Course - Vital Signs Last Recorded V/S: Last Vital Signs Temp 37.4 C 10/16/18 19:21 Pulse 92 10/16/18 19:21 Resp 16 10/16/18 19:21 BP 156/112 H 10/16/18 19:45 Pulse Ox 98 10/16/18 19:21 - Orders/Labs/Meds Meds: Medications Discontinued Medications Generic Name Dose Route Start Last Admin Trade Name Steve PRN Reason Stop Dose Admin Cephalexin 10,000 mg 10/16/18 19:40 Keflex .ROUTE 10/16/18 19:41 .STK-MED ONE Departure - Departure Time of Disposition: 18:00 Disposition: Home, Self-Care 01 Condition: Good Clinical Impression: Cough, Chest congestion - Discharge Information Instructions: Cephalexin tablets or capsules Forms: ED Department Discharge Additional Instructions: Take all regularly prescribed medications as previously directed. Also take Tylenol 500mg every 6-8 hours as needed for temperature. Begin taking provided Keflex as directed: 1 capsule by mouth twice daily for 10 days. Should symptoms worsen or persist, follow up in clinic as needed. Eat yogurt 1-2 daily for probiotic with antibiotic therapy. Call with any questions. - Problem List & Annotations (1) Chest congestion SNOMED Code(s): 96338550 Code(s): R09.89 - OTH SYMPTOMS AND SIGNS INVOLVING THE CIRC AND RESP SYSTEMS Status: Acute (2) Cough SNOMED Code(s): 10288768 Code(s): R05 - COUGH Status: Acute - Problem List Review Problem List Initiated/Reviewed/Updated: Yes - Assessment/Plan Plan: Counseled on supportive care and antibiotics use and management. Discussed f/u as directed in clinic or ER as needed if symptoms persist or worsen.
== END 2018-10-16 19:47 | disposition home or self-care (01) ==
LOC: LB.ED 19:01
DX: R05 Cough (principal); R09.89 Other specified symptoms and signs involving the circulatory and respiratory systems; E78.00 Pure hypercholesterolemia, unspecified; I10 Essential (primary) hypertension; K21.9 Gastro-esophageal reflux disease without esophagitis; E11.9 Type 2 diabetes mellitus without complications; Z79.899 Other long term (current) drug therapy; Z79.84 Long term (current) use of oral hypoglycemic drugs; Z87.442 Personal history of urinary calculi; Z79.01 Long term (current) use of anticoagulants
CPT/HCPCS: 99282; A9270; 99283

== ENCOUNTER 2019-01-08 12:06 | Emergency (ER) | payer MEDICARE, MEDICAID ==
[2019-01-08 12:21] VITALS: BP 159/86; PULSE 96
--- NOTE | 2019-01-08 12:44 | EDM.PDOC ---
ED HPI GENERAL MEDICAL PROBLEM - General Chief Complaint: Upper Extremity Injury/Pain Stated Complaint: PAIN SHOULDER DOWN ARM LEFT Time Seen by Provider: 01/08/19 12:36 Source of Information: Reports: Patient, RN - History of Present Illness INITIAL COMMENTS - FREE TEXT/NARRATIVE: 63 yo male presents with left shoulder pain and pain radiating down the left arm pain and started yesterday. States pain is 7-8 out of 10. States he may be having the pain with sleeping on the left side. Chronic pain and uncertain if this is arthritic pain or other pain. States he took Vicoden this am around 5 and around 11am Took tylenol. States the pain improved some with Vicoden. States pain increases with deep breath. He tried heat to the area and didn't help any. States he did have a lidocaine patch in the past while at [place] and it did help, but the pain is more severe now. Other Treatments [employer]: compression boots Left Shoulder Pain Score (Numeric/FACES): 8 - Related Data Allergies Allergy/AdvReac Type Severity Reaction Status Date / Time No Known Allergies Allergy Verified 10/16/18 19:34 Home Meds: Home Meds metFORMIN HCl [Glucophage] 500 mg PO BID 02/15/17 [History] Simvastatin 10 mg PO DAILY 02/24/18 [History] Allopurinol [Zyloprim] 100 mg PO BEDTIME 03/13/18 [History] Metoprolol Tartrate 75 mg PO BID 03/13/18 [History] Apixaban [Eliquis] 5 mg PO BID 10/16/18 [History] Colchicine 0.6 mg PO BID 10/16/18 [History] Sulfamethoxazole/Trimethoprim [Septra DS] 2 tab PO DAILY 10/16/18 [History] predniSONE [Prednisone] 5 mg PO DAILY 10/16/18 [History] Past Medical History - Past Health History Medical/Surgical History: Denies Medical/Surgical History HEENT History: Reports: Cataract, Hard of Hearing Cardiovascular History: Reports: High Cholesterol, Hypertension Respiratory History: Reports: Sleep Apnea Gastrointestinal History: Reports: GERD Genitourinary History: Reports: Renal Calculus Musculoskeletal History: Reports: Osteoarthritis, Other (See Below) Other Musculoskeletal History: ankylosing spondylitis Endocrine/Metabolic History: Reports: Diabetes, Type II, Obesity/BMI 30+ Oncologic (Cancer) History: Reports: Leukemia, Other (See Below) Other Oncologic History: Completed Tx for Leukemia one week ago and states he does not have to see oncology for 3 months now. Dermatologic History: Reports: Cellulitis - Past Surgical History HEENT Surgical History: Reports: Cataract Surgery Social & Family History - Family History Family Medical History: Noncontributory - Caffeine Use Caffeine Use: Reports: Coffee - Living Situation & Occupation Living situation: Reports: Single Occupation: Employed ED ROS GENERAL - Review of Systems Review Of Systems: See Below Constitutional: Reports: No Symptoms HEENT: Reports: No Symptoms Respiratory: Reports: Shortness of Breath Cardiovascular: Reports: No Symptoms GI/Abdominal: Reports: No Symptoms Musculoskeletal: Reports: Shoulder Pain, Other ( chronic pain to right shoulder and has had injections, chronic pain to hip and had injection, hx of arthritis.) Skin: Reports: Dryness. Denies: Rash, Erythema Neurological: Reports: No Symptoms Psychiatric: Reports: No Symptoms Hematologic/Lymphatic: Reports: Other (Hx of leukemia) Immunologic: Reports: No Symptoms ED EXAM, GENERAL - Physical Exam Exam: See Below Exam Limited By: No Limitations General Appearance: Alert, No Apparent Distress Ears: Hearing Grossly Normal Nose: Normal Inspection, Normal Mucosa Throat/Mouth: Normal Inspection, Normal Oropharynx, Normal Voice, No Airway Compromise Head: Atraumatic, Normocephalic Neck: Normal Inspection, Supple, Non-Tender Respiratory/Chest: No Respiratory Distress, Lungs Clear, Normal Breath Sounds Cardiovascular: Normal Peripheral Pulses, Regular Rate, Rhythm GI/Abdominal: Soft, Non-Tender Extremities: Limited Range of Motion (Limited ROM to left shoulder. ) Neurological: Alert, Oriented, Normal Cognition Psychiatric: Normal Affect, Normal Mood Skin Exam: Warm, Dry, Normal Color Course - Vital Signs Last Recorded V/S: Last Vital Signs Temp 97.9 F 01/08/19 12:14 Pulse 96 01/08/19 12:14 Resp 20 01/08/19 12:14 BP 159/86 H 01/08/19 12:14 Pulse Ox 97 01/08/19 12:14 - Orders/Labs/Meds Orders: Active Orders 24 hr Category Date Time Status EKG Documentation Completion [RC] ASDIRECTED Care 01/08/19 12:38 Active Labs: Laboratory Tests 01/08/19 01/08/19 Range/Units 12:37 12:37 WBC 8.9 D (4.0-11.0) K/uL RBC 4.36 L (4.50-6.50) M/uL Hgb 13.9 (13.0-18.0) g/dL Hct 42.5 (40.0-54.0) % MCV 98 H (76-96) fL MCH 31.9 (27.0-32.0) pg MCHC 32.7 (31.0-35.0) g/dL RDW 15.6 (11.0-16.0) % Plt Count 229 (150-400) K/uL MPV 8.7 (6.0-10.0) fL Neut % (Auto) 80.5 H (45.0-70.0) % Lymph % (Auto) 10.0 L (20.0-40.0) % [place] % (Auto) 9.0 (3.0-10.0) % Eos % (Auto) 0.4 L (1.0-5.0) % Baso % (Auto) 0.1 (0.0-0.5) % Neut # (Auto) 7.18 (2.00-7.50) K/uL Lymph # (Auto) 0.89 L (1.50-4.00) K/uL [place] # (Auto) 0.80 (0.20-0.80) K/uL Eos # (Auto) 0.04 (0.04-0.40) K/uL Baso # (Auto) 0.01 L (0.02-0.10) K/uL Sodium 139 (136-145) mmol/L Potassium 4.2 (3.5-5.1) mmol/L Chloride 101 (98-107) mmol/L Carbon Dioxide 29.0 (21.0-32.0) mmol/L Anion Gap 13.2 (5.0-15.0) mmol/L BUN 17 (8-26) mg/dL Creatinine 1.02 (0.70-1.30) mg/dL Est Cr Clr Drug Dosing 78.53 mL/min Estimated GFR (MDRD) > 60 (>60) MLS/MIN BUN/Creatinine Ratio 16.7 (6-25) Glucose 123 H (74-100) mg/dL Calcium 9.2 (8.5-10.1) mg/dL Total Bilirubin 0.7 (0.0-1.0) mg/dL AST 21 (15-37) U/L ALT 24 (12-78) U/L Alkaline Phosphatase 94 (46-116) U/L Troponin I < 0.017 (0.000-0.060) ng/mL Total Protein 7.9 (6.4-8.2) g/dL Albumin 3.5 (3.4-5.0) g/dL Globulin 4.4 H (2.2-4.2) g/dL Albumin/Globulin Ratio 0.8 (0.8-2.0) - Re-Assessments/Exams Free Text/Narrative Re-Assessment/Exam: 01/08/19 14:46 EKG and troponin checked with BMP and CBC. Lab results are noncontributory and Troponin are negative. Recommend use of Vicoden tid as needed for relief of pain. Follow-up in clinic in next few days if pain persists or worsens. Return to ER if any chest pain or increase in shortness of breath. Departure - Departure Time of Disposition: 13:46 Disposition: Home, Self-Care 01 Condition: Good Clinical Impression: Shoulder pain, left - Discharge Information *PRESCRIPTION DRUG MONITORING PROGRAM REVIEWED*: Not Applicable *COPY OF PRESCRIPTION DRUG MONITORING REPORT IN PATIENT MICHELLE: Not Applicable Instructions: Acetaminophen; Hydrocodone tablets or capsules Referrals: PCP,None [Primary Care Provider] - Forms: ED Department Discharge Additional Instructions: Take 1 Tab Vicodin every 8 hours as needed for shoulder pain If not better in a few days , make appt. at Clinic for x-ray May use ice pack or hot pack - My Orders Last 24 Hours: My Active Orders 01/08/19 12:38 EKG Documentation Completion [RC] ASDIRECTED - Assessment/Plan Last 24 Hours: My Active Orders 01/08/19 12:38 EKG Documentation Completion [RC] ASDIRECTED Plan: Recommend use of Vicoden tid as needed for relief of pain. Follow-up in clinic in next few days if pain persists or worsens. Return to ER if any chest pain or increase in shortness of breath.
== END 2019-01-08 13:46 | disposition home or self-care (01) ==
LOC: LB.ED 12:06
DX: M25.512 Pain in left shoulder (principal); I10 Essential (primary) hypertension; E11.9 Type 2 diabetes mellitus without complications; E66.9 Obesity, unspecified; Z68.42 Body mass index [BMI] 45.0-49.9, adult; Z79.84 Long term (current) use of oral hypoglycemic drugs; E78.00 Pure hypercholesterolemia, unspecified; Z79.899 Other long term (current) drug therapy
CPT/HCPCS: 36415; 80053; 84484; 85025; 93005; 99283-25

== ENCOUNTER → 2019-01-17 | Outpatient (CLI) | payer MEDICARE, MEDICAID | LOC: LB.LAB 12:31 | PROVIDERS: ATTEND Internal Medicine Hematology & Oncology | DX: C92.41 Acute promyelocytic leukemia, in remission (principal) | CPT/HCPCS: 36415; 82247; 82565; 84075; 84450; 84460; 85025 ==

== ENCOUNTER → 2019-01-23 | Outpatient (CLI) | payer MEDICARE, MEDICAID | LOC: LB.LAB 10:23 | PROVIDERS: ATTEND Internal Medicine Hematology & Oncology | DX: C92.41 Acute promyelocytic leukemia, in remission (principal) | CPT/HCPCS: 36415; 82247; 82565; 84075; 84450; 84460; 85025 ==

== ENCOUNTER 2019-07-30 18:28 | Emergency (ER) | payer MEDICARE, MEDICAID ==
--- NOTE | 2019-07-30 19:21 | EDM.PDOC ---
ED HPI GENERAL MEDICAL PROBLEM - General Chief Complaint: General Stated Complaint: Rt leg pain Time Seen by Provider: 07/30/19 19:00 Source of Information: Reports: Patient History Limitations: Reports: No Limitations - History of Present Illness INITIAL COMMENTS - FREE TEXT/NARRATIVE: This patient presents to the ED for evaluation of right leg pain. He states he has been on Eliquis for the past 16 months after a PICC line was placed in his left subclavian for chemotherapy. He believes that he might have a clot in his right leg because he developed pain in his calf a day ago. He says his leg is swollen as well. He denies any redness or warmth. He is not having any difficulty breathing or chest pain. He denies recent illnesses including fever, cough, shortness of breath, or sore throat. Onset: Today, Gradual Onset Date: 07/30/19 Duration: Getting Worse Location: Reports: Lower Extremity, Right Quality: Reports: Burning, Sharp Severity: Moderate Improves with: Reports: Movement Worsens with: Reports: Immobilization Associated Symptoms: Denies: Chest Pain, Cough, Fever/Chills, Headaches, Nausea/ Vomiting, Shortness of Breath, Weakness - Related Data Allergies Allergy/AdvReac Type Severity Reaction Status Date / Time No Known Allergies Allergy Verified 10/16/18 19:34 Home Meds: Home Meds metFORMIN HCl [Glucophage] 500 mg PO BID 02/15/17 [History] Simvastatin 10 mg PO DAILY 02/24/18 [History] Metoprolol Tartrate 75 mg PO BID 03/13/18 [History] allopurinoL [Zyloprim] 100 mg PO BEDTIME 03/13/18 [History] Apixaban [Eliquis] 5 mg PO BID 10/16/18 [History] Colchicine 0.6 mg PO BID 10/16/18 [History] Sulfamethoxazole/Trimethoprim [Septra DS] 2 tab PO DAILY 10/16/18 [History] predniSONE [Prednisone] 5 mg PO DAILY 10/16/18 [History] Past Medical History - Past Health History Medical/Surgical History: Denies Medical/Surgical History HEENT History: Reports: Cataract, Hard of Hearing Cardiovascular History: Reports: High Cholesterol, Hypertension Respiratory History: Reports: Sleep Apnea Gastrointestinal History: Reports: GERD Genitourinary History: Reports: Renal Calculus Musculoskeletal History: Reports: Osteoarthritis, Other (See Below) Other Musculoskeletal History: ankylosing spondylitis Endocrine/Metabolic History: Reports: Diabetes, Type II, Obesity/BMI 30+ Oncologic (Cancer) History: Reports: Leukemia, Other (See Below) Other Oncologic History: Completed Tx for Leukemia one week ago and states he does not have to see oncology for 3 months now. Dermatologic History: Reports: Cellulitis - Past Surgical History HEENT Surgical History: Reports: Cataract Surgery Social & Family History - Family History Family Medical History: Noncontributory - Caffeine Use Caffeine Use: Reports: Coffee - Living Situation & Occupation Living situation: Reports: Single Occupation: Employed ED ROS GENERAL - Review of Systems Review Of Systems: Comprehensive ROS is negative, except as noted in HPI. ED EXAM, GENERAL - Physical Exam Exam: See Below Exam Limited By: No Limitations General Appearance: Alert, No Apparent Distress, Obese (morbidly) Eye Exam: Bilateral Eye: PERRL Ears: Normal External Exam Nose: Normal Inspection Throat/Mouth: Normal Inspection Head: Atraumatic, Normocephalic Neck: Normal Inspection, Full Range of Motion Respiratory/Chest: No Respiratory Distress, Lungs Clear, Normal Breath Sounds, No Accessory Muscle Use Extremities: Other (4+ pitting edema bilateral lower legs, right leg slightly more so than left. No redness or swelling. Pain in calf when he gets up from resting. Distal CMS intact.) Neurological: Alert, Oriented Psychiatric: Normal Affect Skin Exam: Warm, Dry, Intact Course - Re-Assessments/Exams Free Text/Narrative Re-Assessment/Exam: 07/30/19 19:23 This patient presents for evaluation of leg symptoms. The clinical examination is unremarkable with the exception of pain.The patient should have an US of his leg to arrive at a definitive diagnosis. An US will be obtained as an outpatient on , 08/01 and will be scheduled with the patient to be notified. t. There are no symptoms to suggest he has a true DVT or pulmonary embolism. Anticoagulation will be continued at this time. There is no indication at this point for thrombolysis or admission for directed thrombolytics. There is not an indication for antibiotics. I recommended treating the pain with with warm compresses and NSAIDS. Close follow up with PMD in 1 week advised. Return sooner for increased swelling, pain, fevers or other new symptoms. Departure - Departure Time of Disposition: 19:20 Disposition: Home, Self-Care 01 Condition: Good Clinical Impression: Calf pain - Discharge Information
[2019-07-31 01:28] VITALS: BP 165/72; PULSE 99
== END 2019-07-30 19:15 | disposition home or self-care (01) ==
LOC: LB.ED 18:28
DX: M79.661 Pain in right lower leg (principal); I10 Essential (primary) hypertension; E78.00 Pure hypercholesterolemia, unspecified; M19.90 Unspecified osteoarthritis, unspecified site; E11.9 Type 2 diabetes mellitus without complications; E66.9 Obesity, unspecified; Z68.43 Body mass index [BMI] 50.0-59.9, adult; Z79.84 Long term (current) use of oral hypoglycemic drugs; Z79.01 Long term (current) use of anticoagulants; Z79.899 Other long term (current) drug therapy
CPT/HCPCS: 99283

== ENCOUNTER 2020-08-14 16:50 | Emergency (ER) | payer MEDICARE, MEDICAID ==
[2020-08-14 17:10] VITALS: BP 158/85; PULSE 75
[2020-08-14] MEDS ORDERED: Amoxicillin 500 MG Cap PO ONE (17:30)
--- NOTE | 2020-08-14 17:31 | EDM.PDOC ---
ED HPI GENERAL MEDICAL PROBLEM - General Chief Complaint: Upper Extremity Injury/Pain Stated Complaint: THORN I ARM Time Seen by Provider: 08/14/20 17:05 Source of Information: Reports: Patient History Limitations: Reports: No Limitations - History of Present Illness INITIAL COMMENTS - FREE TEXT/NARRATIVE: patient presented to the ER with a c/o painful spot to the RUE - after it was poked with a tree branch while mowing the lawn. patient is diabetic and it occurred 3 days ago - he is concerned about infection. no fever or chills. Onset: Sudden Duration: Day(s): (3) Location: Reports: Upper Extremity, Right Quality: Reports: Ache Severity: Mild Improves with: Reports: None Worsens with: Reports: None - Related Data Allergies Allergy/AdvReac Type Severity Reaction Status Date / Time No Known Allergies Allergy Verified 10/16/18 19:34 Home Meds: Home Meds metFORMIN HCl [Glucophage] 500 mg PO BID 02/15/17 [History] Simvastatin 10 mg PO DAILY 02/24/18 [History] Metoprolol Tartrate 75 mg PO BID 03/13/18 [History] allopurinoL [Zyloprim] 100 mg PO BEDTIME 03/13/18 [History] Apixaban [Eliquis] 5 mg PO BID 10/16/18 [History] Colchicine 0.6 mg PO BID 10/16/18 [History] Sulfamethoxazole/Trimethoprim [Septra DS] 2 tab PO DAILY 10/16/18 [History] predniSONE [Prednisone] 5 mg PO DAILY 10/16/18 [History] Amoxicillin 500 mg PO BID #14 tab 08/14/20 [Rx] Past Medical History - Past Health History Medical/Surgical History: Denies Medical/Surgical History HEENT History: Reports: Cataract, Hard of Hearing Cardiovascular History: Reports: High Cholesterol, Hypertension Respiratory History: Reports: Sleep Apnea Gastrointestinal History: Reports: GERD Genitourinary History: Reports: Renal Calculus Musculoskeletal History: Reports: Osteoarthritis, Other (See Below) Other Musculoskeletal History: ankylosing spondylitis Endocrine/Metabolic History: Reports: Diabetes, Type II, Obesity/BMI 30+ Oncologic (Cancer) History: Reports: Leukemia, Other (See Below) Other Oncologic History: Completed Tx for Leukemia one week ago and states he does not have to see oncology for 3 months now. Dermatologic History: Reports: Cellulitis - Past Surgical History HEENT Surgical History: Reports: Cataract Surgery Social & Family History - Family History Family Medical History: No Pertinent Family History - Tobacco Use Tobacco Use Status *Q: Never Tobacco User Second Hand Smoke Exposure: No - Caffeine Use Caffeine Use: Reports: Coffee - Alcohol Use Days Per Week of Alcohol Use: 3 Number of Drinks Per Day: 4 Total Drinks Per Week: 12 Date of Last Drink: 08/13/20 - Recreational Drug Use Recreational Drug Use: No - Living Situation & Occupation Living situation: Reports: Single Occupation: Employed Review of Systems - Review of Systems Review Of Systems: See Below Constitutional: Reports: No Symptoms Eyes: Reports: No Symptoms Ears: Reports: No Symptoms Respiratory: Reports: No Symptoms Cardiovascular: Reports: No Symptoms Skin: Reports: Bruising, Erythema Neurological: Reports: No Symptoms ED EXAM, GENERAL - Physical Exam Exam: See Below Exam Limited By: No Limitations General Appearance: Alert, WD/WN, No Apparent Distress Eye Exam: Bilateral Eye: EOMI Respiratory/Chest: No Respiratory Distress, Lungs Clear Cardiovascular: Regular Rate, Rhythm Skin Exam: Erythema (localized erythema - mild TTP - no drainage ) Course - Vital Signs Last Recorded V/S: Last Vital Signs Temp 36.8 C 08/14/20 17:08 Pulse 75 08/14/20 17:08 Resp 16 08/14/20 17:08 BP 158/85 H 08/14/20 17:08 Pulse Ox 98 08/14/20 17:08 - Orders/Labs/Meds Meds: Medications Discontinued Medications Generic Name Dose Route Start Last Admin Trade Name Pérezq PRN Reason Stop Dose Admin Amoxicillin 500 mg 08/14/20 17:29 Amoxicillin 500 Mg Cap PO 08/14/20 17:30 ONETIME ONE - Re-Assessments/Exams Free Text/Narrative Re-Assessment/Exam: 08/14/20 17:34 wound was explored - no FB was found. abx ointment was applied PO amoxicillin was prescribed Departure - Departure Time of Disposition: 17:34 Disposition: Home, Self-Care 01 Condition: Good Clinical Impression: Cellulitis - Discharge Information *PRESCRIPTION DRUG MONITORING PROGRAM REVIEWED*: Not Applicable *COPY OF PRESCRIPTION DRUG MONITORING REPORT IN PATIENT MICHELLE: Not Applicable Prescriptions: Amoxicillin 500 mg PO BID #14 tab Instructions: Cellulitis, Adult Referrals: PCP,None [Primary Care Provider] - Forms: ED Department Discharge Additional Instructions: take antibiotics as prescribed follow up with your PCP IN 1-2 weeks as needed return to the ER if any concerns or worsening of symptoms Sepsis Event Note (ED) - Focused Exam Vital Signs: Vital Signs Temp Pulse Resp BP Pulse Ox 08/14/20 17:08 36.8 C 75 16 158/85 H 98 - Problem List & Annotations (1) Cellulitis SNOMED Code(s): 751605386 Code(s): L03.90 - CELLULITIS, UNSPECIFIED Status: Acute Priority: Low Current Visit: No Qualifiers: Site of cellulitis: extremity Site of cellulitis of extremity: upper extremity Laterality: right Qualified Code(s): L03.113 - Cellulitis of right upper limb - Problem List Review Problem List Initiated/Reviewed/Updated: Yes - Assessment/Plan Plan: take antibiotics as prescribed follow up with your PCP IN 1-2 weeks as needed return to the ER if any concerns or worsening of symptoms
[2020-08-14] MEDS: Amoxicillin 500 MG Cap PO ONE (17:37)
== END 2020-08-14 17:45 | disposition home or self-care (01) ==
LOC: LB.ED 16:50
DX: L03.113 Cellulitis of right upper limb (principal); E78.00 Pure hypercholesterolemia, unspecified; I10 Essential (primary) hypertension; E11.9 Type 2 diabetes mellitus without complications; Z68.30 Body mass index [BMI] 30.0-30.9, adult; Z79.01 Long term (current) use of anticoagulants; Z79.84 Long term (current) use of oral hypoglycemic drugs; Z79.899 Other long term (current) drug therapy
CPT/HCPCS: 99283; A9270

== ENCOUNTER 2021-09-14 14:03 | Emergency (ER) | payer MEDICARE, MEDICAID ==
[2021-09-14 14:22] VITALS: BP 199/104; PULSE 66
== END 2021-09-14 14:30 | disposition home or self-care (01) ==
LOC: LB.ED 14:03
DX: H66.003 Acute suppurative otitis media without spontaneous rupture of ear drum, bilateral (principal); J01.00 Acute maxillary sinusitis, unspecified; E11.9 Type 2 diabetes mellitus without complications; E78.00 Pure hypercholesterolemia, unspecified; I10 Essential (primary) hypertension; K21.9 Gastro-esophageal reflux disease without esophagitis; E66.9 Obesity, unspecified; Z68.30 Body mass index [BMI] 30.0-30.9, adult; Z79.899 Other long term (current) drug therapy; Z79.01 Long term (current) use of anticoagulants; Z79.84 Long term (current) use of oral hypoglycemic drugs
CPT/HCPCS: 99281; 99282

== ENCOUNTER 2021-10-15 08:02 | Day surgery (SDC) | payer MEDICARE, MEDICAID ==
[~2021-10-15 08:02] MED LIST: Metoclopramide 10 MG/2 ML SDV IV PRN
[2021-10-15] MEDS: Sodium Chloride 0.9% 1,000 ML IV SCH (08:44)
[2021-10-15] MEDS ORDERED: Propofol 1,000 MG/100 ML SDV ONE (09:30)
[2021-10-15 09:54] VITALS: BP 150/99; PULSE 67
== END 2021-10-15 10:40 | disposition home or self-care (01) ==
LOC: LB.SDS 08:02
PROVIDERS: ATTEND Surgery
DX: D12.3 Benign neoplasm of transverse colon (principal); K57.31 Diverticulosis of large intestine without perforation or abscess with bleeding; I10 Essential (primary) hypertension; E11.9 Type 2 diabetes mellitus without complications; I48.91 Unspecified atrial fibrillation
CPT/HCPCS: 45385; 82947; J2704; J7030; 88305

== ENCOUNTER 2022-06-13 15:24 | Emergency (ER) | payer MEDICARE, MEDICAID ==
[2022-06-13 15:38] VITALS: PULSE 80
[2022-06-13 17:01] VITALS: BP 150/91
== END 2022-06-13 17:18 | disposition home or self-care (01) ==
LOC: LB.ED 15:24
DX: S39.011A Strain of muscle, fascia and tendon of abdomen, initial encounter (principal); E11.9 Type 2 diabetes mellitus without complications; E66.9 Obesity, unspecified; Z79.84 Long term (current) use of oral hypoglycemic drugs
CPT/HCPCS: 36415; 81001; 85025; 99283

== ENCOUNTER 2022-07-01 11:34 | Emergency (ER) | payer MEDICARE, MEDICAID ==
[2022-07-01 14:30] VITALS: BP 164/98; PULSE 65
== END 2022-07-01 14:15 | disposition home or self-care (01) ==
LOC: LB.ED 11:34 → SUPCPDRO 11:34 → LB.ED 14:15
DX: M79.604 Pain in right leg (principal); I15.9 Secondary hypertension, unspecified; E78.00 Pure hypercholesterolemia, unspecified; E11.9 Type 2 diabetes mellitus without complications; E66.9 Obesity, unspecified; Z68.43 Body mass index [BMI] 50.0-59.9, adult; Z79.899 Other long term (current) drug therapy
CPT/HCPCS: 36415; 80048; 83735; 83880; 85027; 85379; 93005; 93010; 99283

== ENCOUNTER 2023-01-13 15:35 | Emergency (ER) | payer MEDICARE, MEDICAID ==
[2023-01-13] MEDS ORDERED: Sodium Chloride 0.9% 10 ML Syringe FLUSH PRN (15:47)
[2023-01-13 16:19] LABS: HEMATOCRIT 45.2 % (40.0-54.0); HEMOGLOBIN 15.2 g/dL (13.0-18.0); MEAN CORPUSCULAR HEMOGLOBIN 32.5 pg (27.0-32.0); MEAN CORPUSCULAR HGB CONC 33.6 g/dL (31.0-35.0); MEAN PLATELET VOLUME 8.9 fL (6.0-10.0); RED BLOOD CELL COUNT 4.67 M/uL (4.50-6.50); RED CELL DISTRIBUTION WIDTH 14.4 % (11.0-16.0); WHITE BLOOD CELL COUNT,WBC 9.4 K/uL (4.0-11.0)
[2023-01-13 16:38] LABS: ANION GAP 12.7 mmol/L (5.0-15.0); BLOOD UREA NITROGEN,BUN 23 mg/dL (8-26); CALCIUM 8.7 mg/dL (8.5-10.1); CARBON DIOXIDE,CO2 25.2 mmol/L (21.0-32.0); CHLORIDE,CL 103 mmol/L (98-107); CREATININE 0.96 mg/dL (0.70-1.30); ESTIMATED GFR 88 mL/min (>60); GLUCOSE RANDOM 108 mg/dL (74-100); MAGNESIUM 1.9 mg/dL (1.8-2.4); PHOSPHORUS 2.9 mg/dL (2.5-4.9); POTASSIUM,K 3.9 mmol/L (3.5-5.1); SODIUM,NA 137 mmol/L (136-145); TROPONIN I HIGH SENSITIVITY 6.4 pg/ml (<=60.4)
[2023-01-13] MEDS ORDERED: methylPREDNISolone Sodium Succinate 40 MG/1 ML SDV IVPUSH ONE (16:58)
[2023-01-13] MEDS ORDERED: methylPREDNISolone Sodium Succinate 40 MG/1 ML SDV ONE (17:02)
[2023-01-13 18:07] VITALS: BP 135/107; PULSE 73
== END 2023-01-13 19:00 | disposition home or self-care (01) ==
LOC: LB.ED 15:35
DX: M54.12 Radiculopathy, cervical region (principal); M75.102 Unspecified rotator cuff tear or rupture of left shoulder, not specified as traumatic; I48.91 Unspecified atrial fibrillation; E78.00 Pure hypercholesterolemia, unspecified; I12.9 Hypertensive chronic kidney disease with stage 1 through stage 4 chronic kidney disease, or unspecified chronic kidney disease; E11.22 Type 2 diabetes mellitus with diabetic chronic kidney disease; N18.9 Chronic kidney disease, unspecified; Z79.01 Long term (current) use of anticoagulants; Z79.84 Long term (current) use of oral hypoglycemic drugs; Z79.899 Other long term (current) drug therapy
CPT/HCPCS: 36415; 70450; 80048; 83735; 84100; 84484; 85027; 85379; 93005; 93010; 96374; 99283; 99284-25; J2920; J3490

== ENCOUNTER 2023-04-11 13:01 | Emergency (ER) | payer MEDICARE, MEDICAID ==
[2023-04-11 13:47] LABS: HEMATOCRIT 48.7 % (40.0-54.0); HEMOGLOBIN 15.2 g/dL (13.0-18.0); MEAN CORPUSCULAR HEMOGLOBIN 32.3 pg (27.0-32.0); MEAN CORPUSCULAR HGB CONC 31.2 g/dL (31.0-35.0); MEAN PLATELET VOLUME 9.2 fL (6.0-10.0); RED BLOOD CELL COUNT 4.71 M/uL (4.50-6.50); RED CELL DISTRIBUTION WIDTH 14.5 % (11.0-16.0); WHITE BLOOD CELL COUNT,WBC 8.5 K/uL (4.0-11.0)
[2023-04-11 14:15] LABS: A/G RATIO 0.8 (0.8-2.0); ALBUMIN 3.5 g/dL (3.4-5.0); ANION GAP 16.2 mmol/L (5.0-15.0); BILIRUBIN TOTAL 0.4 mg/dL (0.0-1.0); BUN/CREATININE RATIO 18.3 (6-25); CALCIUM 8.6 mg/dL (8.5-10.1); CARBON DIOXIDE,CO2 19.8 mmol/L (21.0-32.0); CREATININE 1.09 mg/dL (0.70-1.30); EST CRCL DRUG DOSING (CG) 67.56 mL/min; MAGNESIUM 1.9 mg/dL (1.8-2.4); PROTEIN TOTAL,TP 7.7 g/dL (6.4-8.2)
[2023-04-11] MEDS: Hydrochlorothiazide 25 MG Tab PO ONE (14:57)
[2023-04-11 15:04] VITALS: BP 158/101; PULSE 70
== END 2023-04-11 15:50 | disposition home or self-care (01) ==
LOC: LB.ED 13:01
DX: R60.0 Localized edema (principal); R22.42 Localized swelling, mass and lump, left lower limb; I12.0 Hypertensive chronic kidney disease with stage 5 chronic kidney disease or end stage renal disease; E78.00 Pure hypercholesterolemia, unspecified; E11.9 Type 2 diabetes mellitus without complications; N18.9 Chronic kidney disease, unspecified; Z79.01 Long term (current) use of anticoagulants; Z79.899 Other long term (current) drug therapy; Z79.84 Long term (current) use of oral hypoglycemic drugs
CPT/HCPCS: 36415; 80053; 83735; 83880; 85027; 85379; 99283; 99284; A9270-GY

== ENCOUNTER 2023-04-13 19:30 | Emergency (ER) | payer MEDICARE, MEDICAID ==
[2023-04-13] MEDS ORDERED: Sodium Chloride 0.9% 10 ML Syringe FLUSH PRN (19:55)
[2023-04-13 20:18] LABS: HEMATOCRIT 51.2 % (40.0-54.0); HEMOGLOBIN 15.8 g/dL (13.0-18.0); MEAN CORPUSCULAR HEMOGLOBIN 32.5 pg (27.0-32.0); MEAN CORPUSCULAR HGB CONC 30.9 g/dL (31.0-35.0); MEAN PLATELET VOLUME 9.6 fL (6.0-10.0); RED BLOOD CELL COUNT 4.86 M/uL (4.50-6.50); RED CELL DISTRIBUTION WIDTH 14.4 % (11.0-16.0); WHITE BLOOD CELL COUNT,WBC 9.9 K/uL (4.0-11.0)
[2023-04-13 20:35] LABS: A/G RATIO 0.9 (0.8-2.0); ALBUMIN 3.7 g/dL (3.4-5.0); ANION GAP 15.5 mmol/L (5.0-15.0); BILIRUBIN TOTAL 0.5 mg/dL (0.0-1.0); BUN/CREATININE RATIO 19.6 (6-25); CALCIUM 9.1 mg/dL (8.5-10.1); CARBON DIOXIDE,CO2 23.1 mmol/L (21.0-32.0); CREATININE 1.12 mg/dL (0.70-1.30); EST CRCL DRUG DOSING (CG) 65.76 mL/min; POTASSIUM,K 3.6 mmol/L (3.5-5.1); PROTEIN TOTAL,TP 7.7 g/dL (6.4-8.2); TROPONIN I HIGH SENSITIVITY 6.7 pg/ml (<=60.4)
[2023-04-13] MEDS: Sodium Chloride 0.9% 50 ML SDV FLUSH ONE (21:48)
[2023-04-13] MEDS: Iopamidol 755 Mg/ML 100 ML Bottle IV SCH (21:48)
[2023-04-14 00:14] VITALS: BP 154/79; PULSE 71
== END 2023-04-13 23:50 | disposition home or self-care (01) ==
LOC: LB.ED 19:35 → SUPCPDRO 19:35 → LB.ED 23:50
DX: R07.89 Other chest pain (principal); R79.89 Other specified abnormal findings of blood chemistry; E78.00 Pure hypercholesterolemia, unspecified; E11.9 Type 2 diabetes mellitus without complications; E66.9 Obesity, unspecified; I12.9 Hypertensive chronic kidney disease with stage 1 through stage 4 chronic kidney disease, or unspecified chronic kidney disease; N18.9 Chronic kidney disease, unspecified; I48.91 Unspecified atrial fibrillation; Z79.84 Long term (current) use of oral hypoglycemic drugs; Z79.01 Long term (current) use of anticoagulants; Z79.899 Other long term (current) drug therapy; Z86.16 Personal history of COVID-19; Z68.43 Body mass index [BMI] 50.0-59.9, adult
CPT/HCPCS: 36415; 71045; 71275; 80053; 83735; 84484; 85027; 85379; 93005; 93010; 99284; 99285; J3490; Q9967

== ENCOUNTER 2023-05-27 21:53 | Emergency (ER) | payer MEDICARE, MEDICAID ==
[2023-05-27 23:36] VITALS: BP 136/70; PULSE 73
== END 2023-05-27 22:20 | disposition home or self-care (01) ==
LOC: LB.ED 21:53
DX: R10.32 Left lower quadrant pain (principal); I11.0 Hypertensive heart disease with heart failure; I50.9 Heart failure, unspecified; E78.00 Pure hypercholesterolemia, unspecified; E11.9 Type 2 diabetes mellitus without complications; Z86.16 Personal history of COVID-19; Z79.899 Other long term (current) drug therapy; Z79.84 Long term (current) use of oral hypoglycemic drugs
CPT/HCPCS: 99283

== ENCOUNTER 2023-11-20 21:20 | Emergency (ER) | payer MEDICARE, MEDICAID ==
[2023-11-20 22:37] VITALS: BP 146/82; PULSE 74
== END 2023-11-20 21:45 | disposition home or self-care (01) ==
LOC: LB.ED 21:20
DX: L84 Corns and callosities (principal); E78.00 Pure hypercholesterolemia, unspecified; I11.0 Hypertensive heart disease with heart failure; I50.9 Heart failure, unspecified; I48.91 Unspecified atrial fibrillation; E11.9 Type 2 diabetes mellitus without complications; Z86.16 Personal history of COVID-19; Z79.84 Long term (current) use of oral hypoglycemic drugs; Z79.899 Other long term (current) drug therapy; Z79.51 Long term (current) use of inhaled steroids
CPT/HCPCS: 99283

== ENCOUNTER 2024-11-26 11:56 | Emergency (ER) | payer MEDICARE, MEDICAID ==
[2024-11-26 13:47] LABS: BASOPHILS ABSOLUTE AUTO 0.01 K/uL (0.02-0.10); BASOPHILS PERCENT AUTO 0.1 % (0.0-0.5); EOSINOPHILS ABSOLUTE AUTO 0.01 K/uL (0.04-0.40); EOSINOPHILS PERCENT AUTO 0.1 % (1.0-5.0); LYMPHOCYTES ABSOLUTE AUTO 0.70 K/uL (1.50-4.00); LYMPHOCYTES PERCENT AUTO 6.0 % (20.0-40.0); MEAN PLATELET VOLUME 8.6 fL (6.0-10.0); MONOCYTES ABSOLUTE AUTO 1.80 K/uL (0.20-0.80); MONOCYTES PERCENT AUTO 15.5 % (3.0-10.0); NEUTROPHILS ABSOLUTE AUTO 9.13 K/uL (2.00-7.50); NEUTROPHILS PERCENT AUTO 78.3 % (45.0-70.0); PLATELET COUNT,PLT 209 K/uL (150-400); RED BLOOD CELL COUNT 3.99 M/uL (4.50-6.50); RED CELL DISTRIBUTION WIDTH 13.9 % (11.0-16.0); WHITE BLOOD CELL COUNT,WBC 11.7 K/uL (4.0-11.0)
[2024-11-26 14:04] LABS: BLOOD UREA NITROGEN,BUN 29.0 mg/dL (8-26); CARBON DIOXIDE,CO2 19.6 mmol/L (21.0-32.0); CHLORIDE,CL 98.0 mmol/L (98-107); CREATININE 1.54 mg/dL (0.70-1.30); EST CRCL DRUG DOSING (CG) 46.55 mL/min; ESTIMATED GFR 49.0 mL/min (>60); GLUCOSE RANDOM 153.0 mg/dL (74-100); POTASSIUM,K 3.2 mmol/L (3.5-5.1); SODIUM,NA 131.0 mmol/L (136-145)
[2024-11-26] MEDS: Ketorolac 15 MG/ML SDV IVPUSH ONE (15:24)
[2024-11-26 20:01] VITALS: BP 126/64; PULSE 88
== END 2024-11-26 16:45 | disposition home or self-care (01) ==
LOC: LB.ED 11:56
DX: M16.11 Unilateral primary osteoarthritis, right hip (principal); E11.622 Type 2 diabetes mellitus with other skin ulcer; L97.522 Non-pressure chronic ulcer of other part of left foot with fat layer exposed; I11.0 Hypertensive heart disease with heart failure; I50.9 Heart failure, unspecified; E78.00 Pure hypercholesterolemia, unspecified; Z88.8 Allergy status to other drugs, medicaments and biological substances; Z79.899 Other long term (current) drug therapy; Z86.16 Personal history of COVID-19
CPT/HCPCS: 10061; 36415; 72170; 73660-T2; 73660-T5; 80048; 83605; 85025; 86140; 87040; 87070; 87205; 96365; 96375; 99285-25; A0425; A0428; A9270-GY; J1885; J2543

== ENCOUNTER 2024-11-28 14:30 | Emergency (ER) | payer MEDICARE, MEDICAID ==
[2024-11-28] MEDS: Ketorolac 30 MG/ML SDV IM ONE (15:54)
[2024-11-28 17:07] VITALS: BP 109/53; PULSE 81
== END 2024-11-28 16:24 | disposition home or self-care (01) ==
LOC: LB.ED 14:30
DX: M16.12 Unilateral primary osteoarthritis, left hip (principal); I11.0 Hypertensive heart disease with heart failure; E78.00 Pure hypercholesterolemia, unspecified; I50.9 Heart failure, unspecified; E66.9 Obesity, unspecified; E11.621 Type 2 diabetes mellitus with foot ulcer; Z88.8 Allergy status to other drugs, medicaments and biological substances; Z79.84 Long term (current) use of oral hypoglycemic drugs; Z79.899 Other long term (current) drug therapy; Z86.16 Personal history of COVID-19
CPT/HCPCS: 96372; 99283; J1885